=== PATIENT | female | born 1985 | race Caucasian/White ===

== ENCOUNTER 2017-11-03 22:33 | Outpatient (CLI) | payer OTHER ==
[~2017-11-03] VITALS: Ht 165.1 cm; Wt 115.7 kg
[~2017-11-03 22:33] MED LIST: MOTRIN800 MG PO
[2017-11-03 22:56] VITALS: BP 154/88
[2017-11-03] MEDS ORDERED: ZANTAC150 MG PO (23:10)
[2017-11-03] MEDS ORDERED: PRENATAL TABLE1 EAC3 PO (23:10)
[2017-11-03 23:45] VITALS: BP 145/86
[2017-11-04 00:27] VITALS: BP 136/96
[2017-11-04 00:54] LABS: BASOPHIL (%) 0.5 % (0-1); BASOPHIL COUNT 0.1 K/uL (0-0.1); EOSINOPHIL (%) 2.4 % (0-5); EOSINOPHIL COUNT 0.4 K/uL (0-0.3); HEMATOCRIT 35.1 % (36.0-46.0); HEMOGLOBIN 12.3 G/DL (11.9-15.5); IMMATURE GRANULOCYTE (%) 1.9 % (0.0-0.7); LYMPHOCYTE (%) 22.4 % (15-42); LYMPHOCYTE COUNT 3.5 K/uL (1.0-2.8); MCH 31.1 PG (29.0-34.0); MCV 88.9 FL (83-99); MONOCYTE (%) 6.3 % (3-12); NEUTROPHIL (%) 66.5 % (45-76); NEUTROPHIL COUNT 10.3 K/uL (1.8-6.4); PLATELET COUNT 250 K/uL (156-360); RBC DIS.WIDTH-CV 13.8 % (11.8-14.6); RBC DIS.WIDTH-SD 44.5 % (39-53); RED BLOOD COUNT 3.95 M/uL (3.80-5.20); WHITE BLOOD COUNT 15.5 K/uL (4.1-10.2)
[2017-11-04 01:03] LABS: ALBUMIN 3.3 g/dL (3.2-4.8); CHLORIDE 105 mEq/L (99-109); POTASSIUM 3.8 mEq/L (3.7-5.4); SODIUM 135 mEq/L (136-147)
[2017-11-04 01:03] LABS: APPEARANCE CLOUDY ((CLEAR)); BILIRUBIN NEGATIVE; BLOOD NEGATIVE; COLOR YELLOW ((YELLOW)); GLUCOSE (STRIP) NEGATIVE; KETONES 5; LEUKOCYTES NEGATIVE; NITRITE NEGATIVE; PROTEIN (STRIP) 30; SPECIFIC GRAVITY 1.024 (1.000-1.030); UROBILINOGEN 0.2 MG/DL (0.2-1.0)
[2017-11-04 01:05] LABS: GLUCOSE 85 mg/dL (70-99); TOTAL PROTEIN 5.9 g/dL (6.4-8.3)
[2017-11-04 01:06] VITALS: BP 156/89
[2017-11-04 01:07] LABS: TOTAL BILIRUBIN 0.3 mg/dL (0.0-1.0)
[2017-11-04 01:09] VITALS: BP 147/89
[2017-11-04 01:09] LABS: ALKALINE PHOSPHATASE 211 IU/L (3-129); CREATININE 0.6 mg/dL (0.6-1.3); GFR ESTIMATE (CALCULATED) > 59 mL/min/
[2017-11-04 01:10] LABS: UREA NITROGEN (BUN) 9 mg/dL (9-23)
[2017-11-04 01:11] LABS: AST (GOT) 22 IU/L (2-34)
[2017-11-04 01:12] LABS: ALT (GPT) 30 IU/L (3-49); URIC ACID 5.3 mg/dL (3.1-9.2)
[2017-11-04 01:20] LABS: BACTERIA 2+ /HPF; EPITHELIAL CELLS 2+ /HPF; MUCUS RARE /LPF; RED BLOOD CELLS 0-5 /HPF (0-5); UCUL ADDED? YES; WHITE BLOOD CELLS 0-5 /HPF (0-5)
[2017-11-04 01:21] LABS: CALCIUM OXALATE CRYSTALS 1+ /HPF
[2017-11-04 01:53] LABS: LACTATE DEHYDROGENASE 145 IU/L (20-246)
[2017-11-04 01:54] LABS: UR CREATININE CONCENTRATION 163.7 MG/DL
[2017-11-04 02:04] LABS: PTT 27.9 SEC (25-37)
[2017-11-04 02:17] LABS: FIBRINOGEN 599 mg/dL (150-450)
== END 2017-11-04 02:40 | disposition home or self-care (01) ==
LOC: LDRP-OP 22:33 → 2WEST 22:34
PROVIDERS: Advanced Practice Midwife
DX: O47.1 False labor at or after 37 completed weeks of gestation (principal); O99.213 Obesity complicating pregnancy, third trimester; E66.9 Obesity, unspecified; Z68.41 Body mass index [BMI] 40.0-44.9, adult; O99.333 Smoking (tobacco) complicating pregnancy, third trimester; F17.210 Nicotine dependence, cigarettes, uncomplicated; Z3A.37 37 weeks gestation of pregnancy; Z83.3 Family history of diabetes mellitus; Z80.8 Family history of malignant neoplasm of other organs or systems
CPT/HCPCS: 59025; 80053; 81003; 82570; 83615; 84156; 84550; 85025; 85384; 85610; 85730; 87086; G0378

== ENCOUNTER 2017-11-05 16:23 | Inpatient (IN) | payer OTHER ==
[2017-11-05] VITALS (16 sets, daily range): BP systolic 137–188; BP diastolic 77–101
[~2017-11-05] VITALS: Ht 162.6 cm; Wt 116.8 kg
[~2017-11-05 16:23] MED LIST changes: +PRENATAL TABLE1 EAC3 PO; +ZANTAC150 MG PO
[2017-11-05 17:23] LABS: BASOPHIL (%) 0.4 % (0-1); BASOPHIL COUNT 0.1 K/uL (0-0.1); EOSINOPHIL (%) 2.3 % (0-5); EOSINOPHIL COUNT 0.3 K/uL (0-0.3); HEMATOCRIT 37.7 % (36.0-46.0); HEMOGLOBIN 12.9 G/DL (11.9-15.5); IMMATURE GRANULOCYTE (%) 1.1 % (0.0-0.7); LYMPHOCYTE (%) 20.8 % (15-42); LYMPHOCYTE COUNT 2.8 K/uL (1.0-2.8); MCH 30.6 PG (29.0-34.0); MCHC 34.2 G/DL (30.0-36.0); MCV 89.3 FL (83-99); MONOCYTE (%) 9.9 % (3-12); MONOCYTE COUNT 1.3 K/uL (0-0.8); NEUTROPHIL (%) 65.5 % (45-76); NEUTROPHIL COUNT 8.8 K/uL (1.8-6.4); PLATELET COUNT 276 K/uL (156-360); RBC DIS.WIDTH-SD 45.3 % (39-53); RED BLOOD COUNT 4.22 M/uL (3.80-5.20); WHITE BLOOD COUNT 13.4 K/uL (4.1-10.2)
[2017-11-05 17:41] LABS: APPEARANCE CLOUDY ((CLEAR)); BILIRUBIN NEGATIVE; BLOOD SMALL; COLOR YELLOW ((YELLOW)); GLUCOSE (STRIP) NEGATIVE; KETONES NEGATIVE; LEUKOCYTES NEGATIVE; NITRITE NEGATIVE; PROTEIN (STRIP) 30; SPECIFIC GRAVITY 1.023 (1.000-1.030); UROBILINOGEN 0.2 MG/DL (0.2-1.0)
[2017-11-05 17:48] LABS: ALBUMIN 3.3 G/DL (3.2-4.8); ALKALINE PHOSPHATASE 193 IU/L (3-129); ALT (GPT) 26 IU/L (3-49); AST (GOT) 20 IU/L (2-34); CHLORIDE 106 MEQ/L (99-109); CREATININE 0.6 MG/DL (0.6-1.3); GFR ESTIMATE (CALCULATED) > 59 mL/min/; GLUCOSE 64 mg/dL (70-99); LACTATE DEHYDROGENASE 137 IU/L (20-246); POTASSIUM 3.9 MEQ/L (3.7-5.4); SODIUM 135 MEQ/L (136-147); TOTAL BILIRUBIN 0.4 MG/DL (0.0-1.0); TOTAL PROTEIN 6.7 G/DL (6.4-8.3); UREA NITROGEN (BUN) 6 mg/dL (9-23); URIC ACID 4.8 mg/dL (3.1-9.2)
[2017-11-05 17:53] LABS: AMPHETAMINE NEGATIVE (500 ng/mL); BARBITURATES NEGATIVE (200 ng/mL); BENZODIAZEPINES NEGATIVE (150 ng/mL); BUPRENORPHINE NEGATIVE (10 ng/mL); COCAINE NEGATIVE (150 ng/mL); METHADONE NEGATIVE (200 ng/mL); METHAMPHETAMINE NEGATIVE (500 ng/mL); OPIATES (MORPHINE) PRESUMPTIVE POSITIVE (100 ng/mL); OXYCODONE NEGATIVE (100 ng/mL); PHENCYCLIDINE NEGATIVE (25 ng/mL); PROPOXYPHENE NEGATIVE (300 ng/mL); THC CANNABINOIDS NEGATIVE (50 ng/mL); TRICYCLIC ANTIDEPRESSANTS NEGATIVE (300 ng/mL)
[2017-11-05 18:23] LABS: UR CREATININE CONCENTRATION 190.6 MG/DL
[2017-11-05 19:01] LABS: BACTERIA RARE /HPF; EPITHELIAL CELLS 4+ /HPF; MUCUS TRACE /LPF; RED BLOOD CELLS 20-30 /HPF (0-5); UCUL ADDED? NO; WHITE BLOOD CELLS 0-5 /HPF (0-5)
[2017-11-06] VITALS (43 sets, daily range): BP systolic 100–174; BP diastolic 51–96
[2017-11-06 08:17] LABS: HEMATOCRIT 36.2 % (36.0-46.0); HEMOGLOBIN 12.3 G/DL (11.9-15.5); MCH 30.5 PG (29.0-34.0); MCV 89.8 FL (83-99); PLATELET COUNT 262 K/uL (156-360); RBC DIS.WIDTH-CV 13.8 % (11.8-14.6); RBC DIS.WIDTH-SD 45.6 % (39-53); RED BLOOD COUNT 4.03 M/uL (3.80-5.20); WHITE BLOOD COUNT 15.3 K/uL (4.1-10.2)
[2017-11-06 08:45] LABS: ALBUMIN 3.1 G/DL (3.2-4.8); ALKALINE PHOSPHATASE 174 IU/L (3-129); ALT (GPT) 28 IU/L (3-49); AST (GOT) 22 IU/L (2-34); CHLORIDE 101 MEQ/L (99-109); CREATININE 0.6 MG/DL (0.6-1.3); GFR ESTIMATE (CALCULATED) > 59 mL/min/; SODIUM 133 MEQ/L (136-147); TOTAL PROTEIN 5.9 G/DL (6.4-8.3); UREA NITROGEN (BUN) 5 mg/dL (9-23)
[2017-11-06 08:46] LABS: GLUCOSE 99 mg/dL (70-99); TOTAL BILIRUBIN 0.5 MG/DL (0.0-1.0)
[2017-11-06 09:06] LABS: UR CREATININE CONCENTRATION 87.3 MG/DL
[2017-11-07] VITALS (10 sets, daily range): BP systolic 135–181; BP diastolic 69–94
[2017-11-07 13:59] LABS: BASOPHIL (%) 0.2 % (0-1); EOSINOPHIL (%) 0.2 % (0-5); HEMATOCRIT 32.7 % (36.0-46.0); HEMOGLOBIN 10.9 G/DL (11.9-15.5); IMMATURE GRANULOCYTE (%) 0.9 % (0.0-0.7); LYMPHOCYTE (%) 10.8 % (15-42); LYMPHOCYTE COUNT 1.9 K/uL (1.0-2.8); MCH 30.5 PG (29.0-34.0); MCHC 33.3 G/DL (30.0-36.0); MCV 91.6 FL (83-99); MONOCYTE (%) 7.1 % (3-12); MONOCYTE COUNT 1.2 K/uL (0-0.8); NEUTROPHIL (%) 80.8 % (45-76); PLATELET COUNT 246 K/uL (156-360); RBC DIS.WIDTH-CV 13.9 % (11.8-14.6); RBC DIS.WIDTH-SD 46.8 % (39-53); RED BLOOD COUNT 3.57 M/uL (3.80-5.20); WHITE BLOOD COUNT 17.4 K/uL (4.1-10.2)
[2017-11-08 06:07] LABS: BASOPHIL (%) 0.5 % (0-1); BASOPHIL COUNT 0.1 K/uL (0-0.1); EOSINOPHIL (%) 1.9 % (0-5); EOSINOPHIL COUNT 0.3 K/uL (0-0.3); HEMATOCRIT 27.5 % (36.0-46.0); HEMOGLOBIN 9.1 G/DL (11.9-15.5); IMMATURE GRANULOCYTE (%) 0.8 % (0.0-0.7); LYMPHOCYTE (%) 26.8 % (15-42); LYMPHOCYTE COUNT 3.5 K/uL (1.0-2.8); MCH 30.5 PG (29.0-34.0); MCHC 33.1 G/DL (30.0-36.0); MCV 92.3 FL (83-99); MONOCYTE (%) 9.2 % (3-12); MONOCYTE COUNT 1.2 K/uL (0-0.8); NEUTROPHIL (%) 60.8 % (45-76); PLATELET COUNT 201 K/uL (156-360); RBC DIS.WIDTH-CV 14.5 % (11.8-14.6); RBC DIS.WIDTH-SD 48.8 % (39-53); RED BLOOD COUNT 2.98 M/uL (3.80-5.20); WHITE BLOOD COUNT 13.2 K/uL (4.1-10.2)
[2017-11-09 08:00] VITALS: BP 165/80
[2017-11-09] MEDS ORDERED: IBUPROFEN800 MG PO (09:12)
[2017-11-09] MEDS ORDERED: FERROUS SULFAT325 MG PO (09:12)
[2017-11-09] MEDS ORDERED: LABETALOL HCL200 MG PO (09:12)
[2017-11-09] MEDS ORDERED: HYDROCODON-ACE1 EAC7 PO (09:12)
[2017-11-09] MEDS ORDERED: NORMODYNE,TRAN300 MG PO (09:17)
[2017-11-09 12:00] VITALS: BP 136/71
[2017-11-09 14:52] VITALS: BP 155/81
== END 2017-11-09 16:12 | disposition home or self-care (01) | DRG 765 ==
LOC: LDRP-OP 16:23 → 2WEST 16:24 → LDRP-OP 12-25 03:01
PROVIDERS: Advanced Practice Midwife; Obstetrics & Gynecology; Obstetrics & Gynecology Obstetrics
PROC: 3E033VJ Introduction of Other Hormone into Peripheral Vein, Percutaneous Approach (ICD-10-PCS; principal; 2017-11-06)
PROC: 00HU33Z Insertion of Infusion Device into Spinal Canal, Percutaneous Approach (ICD-10-PCS; principal; 2017-11-06)
PROC: 0U7C7ZZ Dilation of Cervix, Via Natural or Artificial Opening (ICD-10-PCS; principal; 2017-11-06)
PROC: 10907ZC Drainage of Amniotic Fluid, Therapeutic from Products of Conception, Via Natural or Artificial Opening (ICD-10-PCS; principal; 2017-11-06)
PROC: 3E0R3BZ Introduction of Anesthetic Agent into Spinal Canal, Percutaneous Approach (ICD-10-PCS; principal; 2017-11-06)
PROC: 0UB70ZZ Excision of Bilateral Fallopian Tubes, Open Approach (ICD-10-PCS; 2017-11-07)
PROC: 10D00Z1 Extraction of Products of Conception, Low, Open Approach (ICD-10-PCS; 2017-11-07)
DX: O13.4 Gestational [pregnancy-induced] hypertension without significant proteinuria, complicating childbirth (principal); O62.1 Secondary uterine inertia; O61.0 Failed medical induction of labor; O76 Abnormality in fetal heart rate and rhythm complicating labor and delivery; O99.02 Anemia complicating childbirth; D62 Acute posthemorrhagic anemia; O99.214 Obesity complicating childbirth; E66.01 Morbid (severe) obesity due to excess calories; Z68.41 Body mass index [BMI] 40.0-44.9, adult; O99.334 Smoking (tobacco) complicating childbirth; F17.210 Nicotine dependence, cigarettes, uncomplicated; Z30.2 Encounter for sterilization; Z3A.37 37 weeks gestation of pregnancy; Z37.0 Single live birth
CPT/HCPCS: 59025; 80053; 81003; 82570; 83615; 84156; 84550; 84999; 85025; 85027; 85384; 85610; 85730; 87086; C1755; G0378; J0690; J1100; J1170; J1885; J2274; J2405; J3475; J7120; S0020